=== PATIENT | male | born 1995 | race Caucasian/White ===

== ENCOUNTER 2017-01-24 02:48 | Emergency (ER) | payer SELFPAY ==
[~2017-01-24] VITALS: Ht 182.9 cm; Wt 210.5 kg
[~2017-01-24 02:48] MED LIST: AMO500 PO; IBUP-1542 PO
[2017-01-24 02:57] VITALS: Ht 182.9 cm; Wt 210.5 kg
[2017-01-24] MEDS ORDERED: morphine 4 MG/ML VIAL IV STA (04:53)
[2017-01-24] MEDS ORDERED: ONDANSETRON 4 MG INJ IV STA (04:53)
[2017-01-24] MEDS ORDERED: SOD CHLORIDE 0.9% 1,000 ML IV STA (04:53)
[2017-01-24 05:12] LABS: ADD SCAN DIFF NO
[2017-01-24 05:15] LABS: URINE BILIRUBIN (Dip) NEGATIVE (NEGATIVE); URINE COLOR LT. YELLOW (YELLOW); URINE GLUCOSE (Dip) NEGATIVE (NEGATIVE); URINE KETONES (Dip) NEGATIVE (NEGATIVE); URINE LEUKOCYTE ESTERASE (Dip) NEGATIVE (NEGATIVE); URINE NITRITE (Dip) NEGATIVE (NEGATIVE); URINE TOTAL PROTEIN (Dip) NEGATIVE (NEGATIVE); URINE UROBILINOGEN (Dip) 0.2 E.U./dL (0.1-1.0)
[2017-01-24 05:17] LABS: BASOPHIL # 0.1 10^3/ul (0.0-0.1); BASOPHILS % 0.4 % (0.0-2.0); EOSINOPHILS # 0.2 10^3/ul (0.0-0.5); EOSINOPHILS % 1.1 % (0.0-7.0); HEMATOCRIT 45.5 % (42.0-52.0); HEMOGLOBIN 15.1 g/dl (14.0-18.0); LYMPHOCYTES # 2.5 10^3/ul (0.8-2.9); LYMPHOCYTES % 13.5 % (15.0-51.0); MEAN CORPUSCULAR HEMOGLOBIN 27.8 pg (29.0-33.0); MEAN CORPUSCULAR HGB CONC 33.2 g/dl (32.0-37.0); MEAN CORPUSCULAR VOLUME 83.6 fl (82.0-101.0); MEAN PLATELET VOLUME 10.3 fl (7.4-10.4); MONOCYTES % 5.6 % (0.0-11.0); NEUTROPHIL # 14.8 10^3/ul (1.6-7.5); NEUTROPHILS % 78.9 % (39.0-77.0); PLATELET COUNT 321 10^3/UL (140-415); RED BLOOD COUNT 5.44 10^6/ul (4.70-6.10); RED CELL DISTRIBUTION WIDTH 13.5 % (11.5-14.5); WHITE BLOOD COUNT 18.7 10^3/ul (4.8-10.8)
[2017-01-24 05:22] LABS: ADD UMIC NO; URINE BLOOD (Dip) NEGATIVE (NEGATIVE)
[2017-01-24 05:28] LABS: ALBUMIN 4.5 g/dl (3.3-4.9)
[2017-01-24 05:31] LABS: ALBUMIN/GLOBULIN RATIO 1.12; BILIRUBIN,INDIRECT 0.6 mg/dl (0-1.1); BILIRUBIN,TOTAL 0.6 mg/dl (0.2-1.3); CREATININE 0.67 mg/dl (0.61-1.24); TOTAL PROTEIN 8.5 g/dl (6.1-8.1)
[2017-01-24 05:32] LABS: CALCIUM 9.7 mg/dl (8.4-10.2)
[2017-01-24] MEDS ORDERED: ACETAMINOPHEN 325 MG TAB PO PRN (06:30)
[2017-01-24] MEDS ORDERED: CEFTRIAXONE 1 GM/50 ML (PMX) 50 ML IVPB ONE ×2 (06:30→07:30)
[2017-01-24] MEDS ORDERED: ONDANSETRON 4 MG INJ IV PRN (06:30)
[2017-01-24] MEDS ORDERED: metroNIDAZOLE 500 MG/NS (PMX) 100 ML IVPB ONE (06:30)
--- NOTE | 2017-01-24 06:39 | RADRPT ---
PROCEDURE: Abdominal ultrasound, limited. CLINICAL INDICATION: Abdominal pain. TECHNIQUE: Multiple real-time images were acquired of the patient's right upper abdomen utilizing a high resolution transducer. Study is limited by patient's body habitus. COMPARISON: 03/07/2013. FINDINGS: The liver demonstrates increased echogenicity. No gallstones are identified. Small amount of echog enic sludge is seen within the gallbladder. There is no pericholecystic fluid or gallbladder wall t hickening. The pancreas, common bile duct and right kidney are not visualized. No free fluid is id entified. IMPRESSION: Study limited by patient's body habitus. The pancreas, common bile duct and right kidney are not vi sualized. Gallbladder sludge. Fatty infiltration of the liver. .Florian Briones MD, MD Date Time Electronically viewed and signed by .Florian Briones MD, MD on 01/24/2017 06:38 .T/
--- NOTE | 2017-01-24 07:18 | HP ---
Date/Time of Note Date/Time of Note DATE: 01/24/17 TIME: 07:15 Assessment/Plan Assessment/Plan Assessment/Plan 1) Abdominal Pain, RLQ with rebound, Appendicitis suspected, especially with elevated WBCs = 18.7, Chills and Poor appetite. Last ate at 4 pm 01/24/16. - Admit to Observation - CONSULT: Surgery - Dr. Zhang HPI/ROS Admit Date/Time Admit Date/Time 01/24/17 0627 Hx of Present Illness APPY? ROS General: Admits: Denies: Fever, Chills, Poor Appetite, Abnormal Weight Loss, Generalized Body Aches Eyes: Admits: Denies: Blurry Vision, Double Vision, Yellow Eyes HENT: Admits: Denies: Sinus Pain/Pressure, Ear Pain/Pressure, Runny/Stuffy Nose, Sore Throat Cardiovascular: Admits: Denies: Chest Pain, Palpitations, Leg Swelling Pulmonary: Admits: Denies: Cough, Wheeze, Shortness of Breath Gastrointestinal: Admits: Denies: Abdominal Pain, Nausea, Vomiting, Diarrhea, Blood in Stool, Black-Colored Stool Urogenital: Admits: Denies: Burning with Urination, Urinary Frequency, Blood in Urine, Nocturia Musculoskeletal: Admits: Denies: Joint Pain, Joint Swelling, Muscle Pain Neurological: Admits: Denies: Headache, Dizziness, Numbness, Tingling, Shooting Pains Integumentary: Admits: Denies: Rash, Itch, Yellow Skin Endocrine: Admits: Denies: Excessive Thirst, Excessive Hunger, Intolerant to Cold , Intolerant to Heat Psychiatric: Admits: Denies: Anxiety, Depression PMH/Family/Social Social History Smoking Status: Unknown if ever smoked Exam/Review of Systems Vital Signs Vitals Vital Signs Date Time Temp Pulse Resp B/P Pulse Ox O2 Delivery O2 Flow Rate FiO2 01/24/17 06:06 92 12 120/65 90 Room Air 01/24/17 02:57 100.0 Intake and Output 01/23/17 01/23/17 01/24/17 15:00 23:00 07:00 Intake Total 1000 ml Balance 1000 ml Exam Exam General: Eyes: Sclera White, EOMI HENT: Normocephalic/Atraumatic, External Ears/Nose Normal, Moist Mucus Membranes Neck: Supple, Trachea Midline Cardiovascular: Normal Rate, Normal Rhythm, Normal S1 and S2, No Murmur, No Extra Sounds Pulmonary: Clear to Auscultation Bilaterally, Normal Respiratory Effort, No Rales, Rhonchi or Wheezes Gastrointestinal: Normoactive Bowel Sounds, Soft, Non-Tender/Non-Distended, No Hepatosplenomegaly Appreciated, No Pulsatile Masses Urogenital: Deferred Musculoskeletal: Normal Muscle Bulk and Tone Neurological: CN II - XII Grossly Intact, Non-Focal, Speech Normal Integumentary: Normal Moisture and Temperature, Good Turgor, No Jaundice, No Rash Lymphatic: No Cervical Lymphadenopathy Psychiatric: Appropriate Mood and Affect, Good Eye Contact Labs Result Diagram: 01/24/17 0500 01/24/17 0500 Medications Medications Current Medications Metronidazole (Flagyl 500 Mg (Pmx)) 100 ml @ 100 mls/hr ONCE ONCE IVPB ; Start 01/24/17 at 06:30; Stop 01/24/17 at 07:29 PRIYANKA FLETCHER DO Jan 24, 2017 07:18
[2017-01-24] MEDS ORDERED: SOD CHLORIDE 0.9% 1,000 ML IV SCH (07:19)
[2017-01-24] MEDS ORDERED: morphine 2 MG INJ IV PRN (07:30)
[2017-01-24] MEDS ORDERED: NACL 0.9% 3 ML SYG IV SCH (07:30)
[2017-01-24] MEDS ORDERED: METOCLOPRAMIDE 10 MG INJ IV PRN (07:30)
[2017-01-24] MEDS ORDERED: ENOXAPARIN 40 MG/0.4 ML SYG SC SCH (09:00)
[2017-01-24] MEDS ORDERED: FAMOTIDINE 20 MG INJ IV SCH (09:00)
--- NOTE | 2017-01-24 09:42 | CONS ---
Date/Time of Note Date/Time of Note DATE: 01/24/17 TIME: 09:38 Assessment/Plan Assessment/Plan Additional Assessment/Plan [facility] Consultation Note (brief) Date of Service: 01/24/17 Today's Impression & Plan: 21 y/o with abd pain of unclear etiology; appy is possible, but other diagnoses are also possible; since we do not have capability to do axial imaging due to his BMI, we do not have adequate resources to do comprehensive care of this nice young gentleman. No indication for acute surgical intervention, but to maximize level of safety for the patient and provide comprehensive care, my strong recommendation is to transfer patient to a center (preferably a bariatrics center) that has the right resources (namely CT scanner that can handle his BMI) for care. Please see my dictated note for full details. Consultation Date/Type/Reason Admit Date/Time 01/24/17 0627 Social History Smoking Status: Unknown if ever smoked Exam/Review of Systems Vital Signs Vitals Vital Signs Date Time Temp Pulse Resp B/P Pulse Ox O2 Delivery O2 Flow Rate FiO2 01/24/17 08:50 98.5 74 19 129/83 100 Room Air Intake and Output 01/23/17 01/23/17 01/24/17 15:00 23:00 07:00 Intake Total 1000 ml Balance 1000 ml Results Result Diagram: 01/24/17 0500 01/24/17 0500 Results 24 hrs Laboratory Tests Test 01/24/17 05:00 White Blood Count 18.7 #H Red Blood Count 5.44 Hemoglobin 15.1 Hematocrit 45.5 Mean Corpuscular Volume 83.6 Mean Corpuscular Hemoglobin 27.8 L Mean Corpuscular Hemoglobin Concent 33.2 Red Cell Distribution Width 13.5 Platelet Count 321 Mean Platelet Volume 10.3 Neutrophils % 78.9 H Lymphocytes % 13.5 L Monocytes % 5.6 Eosinophils % 1.1 Basophils % 0.4 Nucleated Red Blood Cells % 0.0 Neutrophils # 14.8 H Lymphocytes # 2.5 Monocytes # 1.0 H Eosinophils # 0.2 Basophils # 0.1 Nucleated Red Blood Cells # 0.0 Urine Color LT. YELLOW Urine Clarity CLEAR Urine pH 7.0 Urine Specific [place] 1.015 Urine Ketones NEGATIVE Urine Nitrite NEGATIVE Urine Bilirubin NEGATIVE Urine Urobilinogen 0.2 E.U./dL Urine Leukocyte Esterase NEGATIVE Urine Hemoglobin NEGATIVE Urine Glucose NEGATIVE Urine Total Protein NEGATIVE Sodium Level 136 Potassium Level 4.0 Chloride Level 98 Carbon Dioxide Level 28 Anion Gap 14 Blood Urea Nitrogen 11 Creatinine 0.67 Glucose Level 120 Calcium Level 9.7 Total Bilirubin 0.6 Direct Bilirubin 0.00 Indirect Bilirubin 0.6 Aspartate Amino Transf (AST/SGOT) 31 Alanine Aminotransferase (ALT/SGPT) 74 H Alkaline Phosphatase 70 Total Protein 8.5 H Albumin 4.5 Globulin 4.00 H Albumin/Globulin Ratio 1.12 Lipase 40 Medications Medications Current Medications Sodium Chloride (NS) 1,000 ml @ 125 mls/hr Q8H IV Last administered on 09:00; Admin Dose 125 MLS/HR; Start 01/24/17 at 07:19 Metoclopramide HCl (Reglan) 10 mg Q6H PRN IV NAUSEA AND/OR VOMITING; Start at 07:30 Morphine Sulfate (morphine) 4 mg Q4H PRN IV SEVERE PAIN LEVEL 7-10; Start 01/24 at 07:30 Famotidine (Pepcid Iv) 20 mg Q12 IV Last administered on 01/24/17 09:00; Admin Dose 20 MG; Start 01/24/17 at 09:00 Enoxaparin Sodium 40 mg 40 mg DAILY SC Last administered on 01/24/17 09:00; Admin Dose 40 MG; Start 01/24/17 at 09:00 Ceftriaxone Sodium 50 ml @ 100 mls/hr ONCE ONCE IVPB ; Start 01/24/17 at 07:30 ; Stop 01/24/17 at 07:59; Status UNV Metronidazole (Flagyl 500 Mg (Pmx)) 100 ml @ 100 mls/hr Q6 IVPB ; Start at 12:00; Status UNV MADELINE FULLER M.D. Jan 24, 2017 09:42
--- NOTE | 2017-01-24 10:05 | EN ---
Date/Time of Note Date/Time of Note DATE: 01/24/17 TIME: 10:01 ER Progress Note Patient was admitted to the hospitalist by Dr. Han, with consultation with the surgeon, Dr. Zhang. I was contacted by Dr. Mccormack, who stated that Dr. Zhang wanted the patient to be transferred due to inability to obtain CT scan in a patient weighing over 200 kg. I spoke with Dr. Zhang, and he explained that although he could perform surgery on the patient, he had intermediate suspicion for appendicitis given a prior CT scan showing a retrocecal appendix and anterior tenderness on exam. He therefore requested EMTALA transfer to a facility with capacity to obtain CT scan on a patient of this size. Dr. Zhang examined the patient in the ER. We attempted to transfer the patient to local institutions, but none of them had CT scanners that could accommodate this patient. We therefore initiated a MAC transfer. [facility] identified [facility] as having an adequate CT scanner. I spoke with Dr. Currie, the surgeon at [facility], who accepted the patient for transfer. I personally examined the patient, and he did not have an acute abdomen, but did have persistent tenderness in the right lower quadrant. He has low-grade fever and high white blood cell count, which are concerning for infectious/surgical intra-abdominal process. He currently has stable vital signs, he has received antibiotics, and he states that he feels slightly better. He will be transferred by ambulance to [facility] for further workup. AYUSH MARQUEZ MD Jan 24, 2017 10:05
--- NOTE | 2017-01-24 10:19 | CONS ---
[facility] INITIAL INPATIENT CONSULTATION NOTE DATE OF CONSULTATION: 01/24/2017 PLACE OF SERVICE: [facility] Emergency Department IMPRESSION AND PLAN: A very pleasant but unfortunate 21-year-old gentleman with multiple comorbidities including a BMI of 63, which is his most serious comorbidity, as well as significant psychiatric issues with depression and suicidal ideation, marijuana use, smoking status and hepatomegaly with likely fatty infiltration of the liver, presenting with abdominal pain of somewhat unclear etiology. Certainly this could be his appendix, but it could also be other etiologies such as simple viral gastroenteritis. The main resource problem that we have in the hospital is that our CT scanner and MRI machines are not capable of handling the patient's weight. For this reason, the patient cannot have axial images to both confirm the diagnosis, as well as to assist with any possible complications that may arise after surgical intervention, should surgery be needed for his appendix, for instance. We also have the issue of poor preoperative planning without axial images, in case his problem is more complicated, such as involvement of the colon, intestine or other areas. Postoperative complications of abscess management and drainage would be nearly impossible to do minimally invasive with routine radiologic means, since we do not have the capacity to do that in this hospital. For this reason, I believe that the patient would be better served at a bariatric center that has CT scanners that are capable of scanning his abdomen and dealing with possible postoperative complications, should they arise. Fortunately, I also do not see any indication for acute surgical intervention, and my recommendation would have been to continue with supportive therapy and treating symptoms, as well as intravenous antimicrobials and careful observation in the hospital. I carefully reviewed all of this with the patient, as well as the care team that included the emergency department colleagues, as well as the internal medicine colleagues, and answered all questions to the best of my ability. I believe that the patient understands and agrees with the plan. With above assessment, I have recommended the followin. I strongly recommend transferring patient to a bariatric center that would have the capability to do not only axial images of the abdomen with CT scans and MRIs, but also have the ability to do interventional radiology, should it be necessary. 2. No indication for acute surgical intervention at the moment. 3. Continue intravenous fluids and symptom control. 4. Broad spectrum antimicrobials. 5. Careful observation in the hospital while awaiting transfer. Thank you again for allowing us to participate in the care of this very pleasant gentleman, and I am certain his wonderful family. If there are any questions, please feel free to call me at [phone]. TOTAL VISIT TIME: 45 minutes of which, more than half was spent in face-to- face discussion with the patient as well as coordination of care between multiple physicians and providers. UPDATED CLINICAL SUMMARY: The patient is a very pleasant 21-year-old young gentleman with comorbidity of BMI 63, as well as daily marijuana user and smoker , presenting with abdominal pain and elevated white blood cell count of 18.7. Note that due to his weight, and the restrictions on the CT scanner, we did not have access to axial images. COMORBIDITIES: 1. BMI 63. 2. Marijuana use daily. 3. Smoker daily. 4. Hepatomegaly and severe hepatic fatty infiltration. 5. History of suicidal ideation. 6. History of depression. 7. History of dental abscess. 8. Pharyngitis. 9. Streptococcal infection. DATE OF ADMISSION: 01/24/2017 HISTORY OF PRESENT ILLNESS: The patient is a very pleasant 21-year-old young gentleman with severe comorbidity of BMI 63, as well as likely hepatic steatosis with hepatomegaly, directly a result of his body habitus, and daily marijuana user and smoker who presented to [facility] Emergency Department with a 2 to 3-day history of abdominal pain which seems to be located in the lower quadrants, and perhaps more on the right side than on the left. His white count was 18. We could not do a CT scan to evaluate his abdominal cavity. Note that he has a retrocecal appendix, which we can see on his CT of the abdomen and pelvis on 03/05/2016, when he was a BMI of 53, and his pain appears to be more in the anterior portion of his abdomen with very little to no pain in the right lower quadrant where his appendix actually lies. I was kindly asked to consult regarding a surgical opinion about his care. No major other complaints during my visit. ALLERGIES: NO KNOWN DRUG ALLERGIES. HOME MEDICATIONS: Include: 1. Amoxicillin. 2. Ibuprofen. SOCIAL HISTORY: The patient lives with his family. He reports daily marijuana use and daily smoking. He reports occasional drinking and no intravenous drugs. FAMILY HISTORY: No major medical, surgical or oncologic problems reported by the patient or in his chart. REVIEW OF SYSTEMS: Other than the above-mentioned, there are no other pertinent positives or pertinent negatives in a complete 14-point review of systems. PHYSICAL EXAMINATION: GENERAL: The patient appears to be a very pleasant gentleman of descent, appearing stated age, lying in bed comfortably and in no acute distress. BMI is 63. VITAL SIGNS: Temperature 98.5, blood pressure 129/83, pulse 74, respiratory rate 19, pulse oximetry 100% on room air. HEENT: Normocephalic and atraumatic. Extraocular muscles and hearing are grossly intact bilaterally and symmetrically. Sclerae are nonicteric. Oral cavity is clear; oral mucosa appeared to be pink and moist. Dentition: fair to good. NECK: Supple. There is no lymphadenopathy or JVD. There is no submental, submandibular or supraclavicular lymphadenopathy. CHEST: Rises symmetrically with each breath; patient is breathing comfortably. There are no audible wheezes, rales or rhonchi on the gross exam. HEART: Pulse is regular and palpable on the right wrist. Capillary refill was normal. Carotid pulses are palpable bilaterally and symmetrically in the neck. EXTREMITIES: Lower extremities contain no pitting edema around the ankles bilaterally and symmetrically. ABDOMEN: Soft, nondistended and minimally tender to palpation in the lower quadrants, some on the left and some on the right, but mainly in the anterior abdomen region and no major tenderness on deep palpation near McBurney's point. He also has mild discomfort in the right upper quadrant region. Certainly no peritoneal signs or guarding. Exam is limited due to patient's body habitus, but no obvious organomegaly is noted, and no caput medusae, engorged subcutaneous veins, or obvious evidence of ascites. SKIN: Appears to be pink and feels warm to touch. NEUROLOGIC: Awake, alert, and follows commands appropriately. LABORATORY DATA: Electrolytes are normal. Creatinine 0.67, ALT 74, and the rest of liver function and injury parameters are normal. Albumin 4.5, lipase 40 , platelet count 321. Urinalysis is negative. IMAGING: Patient had an abdominal ultrasound to visualize the gallbladder on , but the study was limited again by patient's body habitus. There was gallbladder sludge and fatty infiltration of the liver, and most of the other organs were not visualized. Note that I personally reviewed all the available pertinent images, both during this hospitalization as well as previous images including a CT scan from last year, and I agree in general with their overall reported findings. Dictated By: MADELINE KING/JUANJO Conf#: [id number] DID#: [id number] MTDD
[2017-01-24 10:21] VITALS: BP 144/88; PULSE 88; RESP 19; TEMP 98.2
[2017-01-24] MEDS ORDERED: metroNIDAZOLE 500 MG/NS (PMX) 100 ML IVPB SCH (12:00)
--- NOTE | 2017-02-01 06:30 | ERA ---
DATE OF SERVICE: 01/24/2017 HISTORY OF PRESENT ILLNESS: This 21-year-old male presents to the emergency room for right lower qu adrant abdominal pain that began this morning. The pain is described as a sharp pressure. He has a lso had nausea with an episode of nonbloody, nonbilious vomiting. He denies fevers or chills. He s tates that he last ate earlier today. He also says that he does have problem with his gallbladder a nd is not sure if he has gallstones. REVIEW OF SYSTEMS: A 10-point review of systems negative except as in the HPI. PAST MEDICAL HISTORY: Gallbladder problems. PAST SURGICAL HISTORY: Negative. FAMILY HISTORY: Noncontributory to right lower quadrant pain. SOCIAL HISTORY: Drinks 2 beers every night, currently denies any alcohol, tobacco, or other drugs. PHYSICAL EXAMINATION: VITAL SIGNS: Temperature 100, pulse 112, blood pressure 178/89, respirations 20, oxygen saturation 98% on room air. GENERAL: Obese, no acute distress. HEENT: Normocephalic, atraumatic. Normal appearance of the external ears, nose, and mouth. Mucous membranes moist. CARDIAC: Mild regular tachycardia without murmurs. LUNGS: Clear to auscultation bilaterally. ABDOMEN: Soft, obese, mild to moderate right lower quadrant tenderness, including McBurney's point. Difficulty performing obturator psoas test because of obesity. No obvious distention. No guardin g or rebound tenderness. NEUROLOGIC: Alert and oriented x3 with no focal deficits. EXTREMITIES: No cyanosis, clubbing, or edema. SKIN: No rashes or other lesions. DIAGNOSTIC WORKUP: Ultrasound of the right upper quadrant: Exam is limited by obesity. Gallbladde r sludge is visualized. Fatty liver. No visualization of the pancreas or common bile duct. No per icholecystic fluid. No gallbladder wall thickening. LABORATORY DATA: CBC is significant for an elevated white blood cell count of 18.7. The patient is not anemic and has normal platelet count. BMP is within normal limits. Liver function tests demon strated a mildly elevated ALT. Lipase is within normal limits. Urinalysis is negative for any infe ction. EMERGENCY DEPARTMENT COURSE AND MEDICAL DECISION MAKING: The patient has right lower quadrant pain and leukocytosis. The obvious concern was for appendicitis. He was initially hydrated with a liter of normal saline and given 4 mg of morphine which resolved his pain completely. He was also given Z ofran which resolved his nausea completely. He received the gallbladder scan but was unable to fit into the CT scanner because of morbid obesity. At that point, I gave the patient a gram of Rocephin and 500 mg of IV Flagyl. I believe that the patient should be admitted for serial abdominal exams as we were unable to obtain visualization of the appendix. I spoke with Dr. Dunn who agreed to adm it the patient. We placed a call to Dr. Zhang, general surgeon distributed generation project manager. I eventually spoke with Viridiana Zhang who suggested the patient could be transferred to a bariatric facility for a CT scan. At that point, ____ the patient had already been admitted ____ at that time. There was a note, accordi ng Dr. Zhang, that the patient was in the emergency room at 9:00 a.m. At that point, Dr. Harrison mad e arrangements to have the patient transferred to an outside hospital to obtain the proper CT scan. He was subsequently transferred. ADMISSION DIAGNOSES: 1. Acute abdominal pain, rule out appendicitis. 2. Vomiting. 3. Leukocytosis. DISPOSITION: Discharged in serious condition. Transferred to outside hospital. Dictated By: TROY ANNE Conf#: [id number] DID#: [id number]
== END 2017-01-24 12:11 | disposition short-term general hospital (02) ==
LOC: E/R 02:48
DX: R10.31 Right lower quadrant pain (principal); R11.10 Vomiting, unspecified; D72.829 Elevated white blood cell count, unspecified
CPT/HCPCS: 36415; 76705; 80053; 81003; 83690; 85025; 87040; 96361; 96365; 96372; 96375; 99285; J0696; J1650; J2270; J2405; J7030